=== PATIENT | female | born 1975 | race Caucasian/White ===

== ENCOUNTER 2017-10-21 22:35 | Inpatient (IN) | payer MEDICAID ==
[2017-10-21 23:01] LABS: ADD MAN DIFF? NO
[2017-10-21 23:05] LABS: WHITE BLOOD COUNT 12.3 10^3/ul (4.8-10.8)
[2017-10-21 23:05] LABS: BASOPHIL # 0.1 10^3/ul (0.0-0.1); BASOPHILS % 0.5 % (0.0-2.0); EOSINOPHILS # 0.5 10^3/ul (0.0-0.5); EOSINOPHILS % 3.6 % (0.0-7.0); HEMATOCRIT 38.7 % (37.0-47.0); HEMOGLOBIN 12.5 g/dl (12.0-16.0); LYMPHOCYTES # 3.7 10^3/ul (0.8-2.9); LYMPHOCYTES % 29.8 % (15.0-51.0); MEAN CORPUSCULAR HEMOGLOBIN 25.8 pg (29.0-33.0); MEAN CORPUSCULAR HGB CONC 32.3 g/dl (32.0-37.0); MEAN PLATELET VOLUME 11.4 fl (7.4-10.4); MONOCYTE # 0.8 10^3/ul (0.3-0.9); MONOCYTES % 6.6 % (0.0-11.0); NEUTROPHIL # 7.3 10^3/ul (1.6-7.5); NEUTROPHILS % 59.1 % (39.0-77.0); PLATELET COUNT 370 10^3/UL (140-415); RED BLOOD COUNT 4.84 10^6/ul (4.20-5.40); RED CELL DISTRIBUTION WIDTH 15.7 % (11.5-14.5)
[2017-10-21 23:23] LABS: ANION GAP 13 (8-16); BLOOD UREA NITROGEN 9 mg/dl (7-20); CALCIUM 9.7 mg/dl (8.4-10.2); CARBON DIOXIDE 27 mmol/L (21-31); CHLORIDE 103 mmol/L (97-110); CHOL/HDL RATIO 2.5 RATIO; CHOLESTEROL 146 mg/dl (100-200); CREATININE 0.48 mg/dl (0.44-1.00); GLUCOSE 152 mg/dl (70-220); HDL CHOLESTEROL 58 mg/dl (34-88); LDL CHOLESTEROL,CALCULATED 58 mg/dl; POTASSIUM 3.8 mmol/L (3.5-5.1); SODIUM 139 mmol/L (135-144); TRIGLYCERIDES 148 mg/dl (0-149)
[2017-10-21 23:24] LABS: INR 0.87; PROTIME 11.9 Sec (11.9-14.9); PT RATIO 0.9
[2017-10-21 23:25] LABS: PARTIAL THROMBOPLASTIN TIME 27.8 Sec (25.0-35.0)
[2017-10-21 23:34] LABS: TROPONIN-I < 0.010 ng/ml (0.000-0.120)
[2017-10-21] MEDS: morphine 4 MG/ML VIAL IV (23:34)
[2017-10-21] MEDS: METOCLOPRAMIDE 10 MG INJ IV (23:34)
[2017-10-21] MEDS: ONDANSETRON 4 MG INJ IV (23:34)
[2017-10-21] MEDS: SOD CHLORIDE 0.9% 1,000 ML IV (23:36)
[2017-10-22 00:14] LABS: ADD UMIC YES; UR ASCORBIC ACID NEGATIVE (NEGATIVE); UR BILIRUBIN (Dip) NEGATIVE (NEGATIVE); UR BLOOD (Dip) 1+ mg/dL (NEGATIVE); UR CLARITY CLEAR (CLEAR); UR COLOR STRAW (YELLOW); UR GLUCOSE (Dip) NEGATIVE (NEGATIVE); UR KETONES (Dip) NEGATIVE (NEGATIVE); UR LEUKOCYTE ESTERASE (Dip) NEGATIVE Leu/ul (NEGATIVE); UR NITRITE (Dip) NEGATIVE (NEGATIVE); UR RBC 0 /HPF (0-5); UR SPECIFIC GRAVITY (Dip) 1.004 (1.003-1.030); UR TOTAL PROTEIN (Dip) 1+ mg/dl (NEGATIVE); UR UROBILINOGEN (Dip) NEGATIVE (NEGATIVE); UR WBC 1 /HPF (0-5)
[2017-10-22 00:56] LABS: AMPHETAMINE/METHAMPHETAMINE Negative (NEGATIVE); BARBITURATES Negative (NEGATIVE); CANNABINOIDS Negative (NEGATIVE); COCAINE Negative (NEGATIVE); OPIATES Positive (NEGATIVE)
[2017-10-22 01:03] LABS: BENZODIAZEPINES Negative (NEGATIVE)
[2017-10-22 01:51] LABS: HEMOGLOBIN A1C 6.6 % (0-5.9)
[2017-10-22] MEDS ORDERED: BISACODYL 10 MG SUPP PR (07:30)
[2017-10-22] MEDS ORDERED: ACETAMINOPHEN 650 MG SUPP PR (07:30)
[2017-10-22] MEDS ORDERED: ONDANSETRON 4 MG INJ IV (07:30)
[2017-10-22] MEDS ORDERED: ALBUTEROL/IPRATROPIUM (NEB) 3 ML AMP NEB (07:30)
[2017-10-22] MEDS: PANTOPRAZOLE 40 MG INJ IV (11:21)
[2017-10-22] MEDS: DEXAMETHASONE 10 MG/ML 1 ML INJ IV (11:21)
[2017-10-22] MEDS: ACETAMINOPHEN 325 MG TAB PO (15:25)
[2017-10-22] MEDS: hydrALAzine 20 MG INJ IV (17:38)
[2017-10-22] MEDS ORDERED: LORAZEPAM 2 MG INJ (18:27)
[2017-10-22] MEDS: LORAZEPAM 2 MG INJ IV (18:30)
[2017-10-22] MEDS ORDERED: LABETALOL HCL 20MG INJ IV (18:30)
[2017-10-22] MEDS: LABETALOL HCL 20MG INJ IV ×2 (18:47→19:55)
[2017-10-22] MEDS: METOPROLOL 25 MG TAB PO (21:04)
[2017-10-23 05:12] LABS: ADD MAN DIFF? NO
[2017-10-23 05:22] LABS: WHITE BLOOD COUNT 14.4 10^3/ul (4.8-10.8)
[2017-10-23 05:22] LABS: BASOPHILS % 0.2 % (0.0-2.0); HEMATOCRIT 36.2 % (37.0-47.0); HEMOGLOBIN 11.4 g/dl (12.0-16.0); LYMPHOCYTES # 2.4 10^3/ul (0.8-2.9); LYMPHOCYTES % 16.9 % (15.0-51.0); MEAN CORPUSCULAR HEMOGLOBIN 25.1 pg (29.0-33.0); MEAN CORPUSCULAR HGB CONC 31.5 g/dl (32.0-37.0); MEAN CORPUSCULAR VOLUME 79.6 fl (82.0-101.0); MEAN PLATELET VOLUME 11.7 fl (7.4-10.4); MONOCYTE # 0.9 10^3/ul (0.3-0.9); MONOCYTES % 6.3 % (0.0-11.0); NEUTROPHIL # 10.9 10^3/ul (1.6-7.5); NEUTROPHILS % 75.8 % (39.0-77.0); PLATELET COUNT 359 10^3/UL (140-415); RED BLOOD COUNT 4.55 10^6/ul (4.20-5.40); RED CELL DISTRIBUTION WIDTH 15.6 % (11.5-14.5)
[2017-10-23] MEDS: PANTOPRAZOLE 40 MG INJ IV (05:26)
[2017-10-23 05:43] LABS: MAGNESIUM 1.6 mg/dl (1.7-2.5)
[2017-10-23 05:43] LABS: PHOSPHORUS 4.1 mg/dl (2.5-4.9)
[2017-10-23 05:46] LABS: ALANINE AMINOTRANSFERASE 19 IU/L (13-69); ALBUMIN 3.7 g/dl (3.3-4.9); ALBUMIN/GLOBULIN RATIO 1.15; ALKALINE PHOSPHATASE 63 IU/L (42-121); ANION GAP 12 (8-16); ASPARTATE AMINO TRANSFERASE 26 IU/L (15-46); BILIRUBIN,INDIRECT 0.3 mg/dl (0-1.1); BILIRUBIN,TOTAL 0.3 mg/dl (0.2-1.3); BLOOD UREA NITROGEN 13 mg/dl (7-20); CALCIUM 9.3 mg/dl (8.4-10.2); CARBON DIOXIDE 28 mmol/L (21-31); CHLORIDE 104 mmol/L (97-110); CREATININE 0.57 mg/dl (0.44-1.00); GLUCOSE 129 mg/dl (70-220); POTASSIUM 3.3 mmol/L (3.5-5.1); SODIUM 141 mmol/L (135-144); TOTAL PROTEIN 6.9 g/dl (6.1-8.1)
[2017-10-23] MEDS: POTASSIUM CHLORIDE 20 MEQ POWDER FOR ORAL SOLN PO (06:38)
[2017-10-23] MEDS: MAGNESIUM SULFATE 2 GM/50 ML 50 ML IVPB (06:38)
[2017-10-23] MEDS: METOPROLOL 25 MG TAB PO ×2 (09:32→21:09)
[2017-10-24] MEDS: hydrALAzine 20 MG INJ IV (01:15)
[2017-10-24] MEDS: PANTOPRAZOLE (EC) 40 MG TAB PO (06:01)
[2017-10-24 06:28] LABS: WHITE BLOOD COUNT 12.2 10^3/ul (4.8-10.8)
[2017-10-24 06:28] LABS: ADD MAN DIFF? NO; BASOPHIL # 0.1 10^3/ul (0.0-0.1); BASOPHILS % 0.6 % (0.0-2.0); EOSINOPHILS # 0.3 10^3/ul (0.0-0.5); EOSINOPHILS % 2.1 % (0.0-7.0); HEMATOCRIT 36.2 % (37.0-47.0); HEMOGLOBIN 11.4 g/dl (12.0-16.0); LYMPHOCYTES # 4.6 10^3/ul (0.8-2.9); LYMPHOCYTES % 37.8 % (15.0-51.0); MEAN CORPUSCULAR HEMOGLOBIN 25.3 pg (29.0-33.0); MEAN CORPUSCULAR HGB CONC 31.5 g/dl (32.0-37.0); MEAN CORPUSCULAR VOLUME 80.4 fl (82.0-101.0); MEAN PLATELET VOLUME 11.1 fl (7.4-10.4); MONOCYTE # 0.7 10^3/ul (0.3-0.9); MONOCYTES % 5.9 % (0.0-11.0); NEUTROPHIL # 6.5 10^3/ul (1.6-7.5); NEUTROPHILS % 53.3 % (39.0-77.0); PLATELET COUNT 333 10^3/UL (140-415); RED CELL DISTRIBUTION WIDTH 15.8 % (11.5-14.5)
[2017-10-24 07:37] LABS: ANION GAP 11 (8-16); BLOOD UREA NITROGEN 13 mg/dl (7-20); CALCIUM 8.9 mg/dl (8.4-10.2); CARBON DIOXIDE 28 mmol/L (21-31); CHLORIDE 105 mmol/L (97-110); CREATININE 0.57 mg/dl (0.44-1.00); GLUCOSE 107 mg/dl (70-220); MAGNESIUM 1.7 mg/dl (1.7-2.5); POTASSIUM 3.2 mmol/L (3.5-5.1); SODIUM 141 mmol/L (135-144)
[2017-10-24] MEDS: METOPROLOL 25 MG TAB PO (10:06)
[2017-10-24] MEDS: POTASSIUM CHLORIDE (SR) 20 MEQ TAB PO (13:19)
[2017-10-24] MEDS: LOSARTAN 50 MG TAB PO (14:22)
== END 2017-10-24 16:28 | disposition home or self-care (01) | DRG 64 ==
LOC: E/R 22:35 → 6WM 10-23 17:12 → ICU 10-22 03:11
DX: I61.4 Nontraumatic intracerebral hemorrhage in cerebellum (principal); G93.6 Cerebral edema; G93.40 Encephalopathy, unspecified; D72.829 Elevated white blood cell count, unspecified
CPT/HCPCS: 36415; 70450; 70551; 80048; 80053; 80061; 80307; 81001; 81025; 82962; 83036; 83735; 84100; 84484; 85025; 85610; 85730; 92610; 93005; 96374; 96375; 99285-25